=== PATIENT | female | born 1950 | race Caucasian/White ===

== ENCOUNTER → 2018-05-16 01:54 | Outpatient (CLI) | payer MEDICARE, SELFPAY ==
--- NOTE | 2018-05-16 16:14 | DI.REPORT_ITS ---
SYMPTOMS/DIAGNOSIS: SCREENING, Z12.31 MAMMOGRAM: Mammograms were interpreted according to the usual protocol including computer analysis with CAD system, tomosynthesis and C view imaging. The breasts are of moderate density with fairly symmetrical distribution of fibroglandular tissue. No dominant mass or clumped microcalcification is identified in either breast. The current examination is compared with previous examinations including October 2016 and there has been no gross interval change in appearance in comparison with the previous studies. CONCLUSION: No specific evidence of malignancy at this time. Routine screening examinations are suggested at yearly intervals due to the family history of breast carcinoma. Category I. Breast density Category B. MQSA ASSESSMENT OF FINDINGS: Negative. Category 1. Patient will receive a letter notifying them of these results. BI-RADS category B. There are scattered areas of fibroglandular density.
== END ==
PROVIDERS: PCP Nurse Practitioner Family; Visit Provider Nurse Practitioner Family
DX: Z12.31 Encounter for screening mammogram for malignant neoplasm of breast (principal); Z80.3 Family history of malignant neoplasm of breast
CPT/HCPCS: 77063; 77067

== ENCOUNTER 2018-08-22 15:18 | Outpatient (REF) | payer MEDICARE, SELFPAY ==
[2018-08-22 21:19] LABS: ALT 38 U/L (12-78); AST 27 U/L (15-37); Alkaline Phosphatase 77 U/L (46-116); Anion Gap 9.6 mmol/L (3-11); BUN 15 mg/dL (7-18); Bilirubin, Total 0.5 mg/dL (0.2-1.0); CO2 29.4 mmol/L (21.0-32.0); CREATININE 0.77 mg/dL (0.55-1.02); Calcium 9.1 mg/dL (8.5-10.1); Chloride 105 mmol/L (98-107); Glucose 101 mg/dL (70-100); Potassium 3.9 mmol/L (3.5-5.1); Sodium 144 mmol/L (136-145); Total Protein 6.9 g/dL (6.4-8.2)
[2018-08-24 10:05] LABS: Hepatitis C Ab w Rflx HCV PCR Negative (NEGAT)
== END 2018-08-22 15:38 ==
LOC: NCHCN 15:18
PROVIDERS: PCP Nurse Practitioner Family; Visit Provider Nurse Practitioner Family
DX: I25.10 Atherosclerotic heart disease of native coronary artery without angina pectoris (principal); R42 Dizziness and giddiness; F41.8 Other specified anxiety disorders; G43.909 Migraine, unspecified, not intractable, without status migrainosus; Z86.39 Personal history of other endocrine, nutritional and metabolic disease; E66.9 Obesity, unspecified; G47.00 Insomnia, unspecified; G47.62 Sleep related leg cramps
CPT/HCPCS: 80053; 86803

== ENCOUNTER 2019-07-12 11:16 | Outpatient (REF) | payer OTHER, SELFPAY ==
[2019-07-12 22:34] LABS: Abs Immature Grans 0.02 k/cumm (0.0-0.09); Absolute Basophil Count 0.04 k/cumm (0.0-0.2); Absolute Eosinophil Count 0.18 k/cumm (0.0-0.7); Absolute Lymphocyte Count 1.84 k/cumm (1.2-3.4); Absolute Monocyte Count 0.37 k/cumm (0.11-0.7); Absolute Neutrophil Count 2.41 k/cumm (1.2-6.7); Basophils % 0.8; Eosinophils % 3.7; HCT 43.9 % (36.0-46.0); HGB 14.8 g/dL (12.0-15.5); Immature Grans % 0.4; Lymphocytes % 37.9; Mean Corp. HGB Concentration 33.7 g/dL (32.0-36.0); Mean Corpuscular Volume 94.8 fL (80-95); Mean Platelet Volume 10.8 fL (8.0-11.0); Monocytes % 7.6; Neutrophils % 49.6; Platelet Count 232 x1000/uL (130-400); RBC 4.63 m/cumm (4.00-5.20); RBC Distribution Width 12.6 % (11.7-14.6); White Blood Cell Count 4.86 k/cumm (4.4-10.8)
[2019-07-12 23:22] LABS: Anion Gap 11.5 mmol/L (3-11); BUN 15 mg/dL (7-18); CO2 24.5 mmol/L (21.0-32.0); CREATININE 0.76 mg/dL (0.55-1.02); Calcium 8.7 mg/dL (8.5-10.1); Chloride 107 mmol/L (98-107); Glucose 114 mg/dL (70-100); Magnesium 2.2 mg/dL (1.8-2.4); Potassium 4.2 mmol/L (3.5-5.1); Sodium 143 mmol/L (136-145); TSH (W/Ref FT4) 1.83 uIU/mL (0.36-3.74); Vitamin B12 444 pg/mL (193-986)
== END 2019-07-12 11:36 ==
LOC: NCHCN 11:16
PROVIDERS: PCP Nurse Practitioner Family; Visit Provider Nurse Practitioner Family
DX: R00.2 Palpitations (principal); M25.561 Pain in right knee
CPT/HCPCS: 80048; 82607; 83735; 84443; 85025

== ENCOUNTER 2019-09-05 01:12 | Outpatient (CLI) | payer OTHER, SELFPAY ==
--- NOTE | 2019-09-05 12:46 | DI.MAMMO_ITS ---
EXAM: MG MAMMO SCREENING CLINICAL HISTORY: SCREENING, Z12.31 TECHNIQUE: Bilateral full field digital CC and MLO mammographic images were obtained with 3D tomosyn thesis and utilizing computer aided detection (CAD). COMPARISON: Available for comparison. FINDINGS: Masses/Architectural Distortion: None seen. Microcalcifications: No suspicious pleomorphic-type are seen. Skin Thickening/Nipple Retraction: None. IMPRESSION: 1. No significant interval change with no specific features of malignancy noted. 2. Unless there is more urgent need, screening mammography is recommended, as per [employer] guidelines. ACR BI-RAD Category- 1 Negative Breast Density - Category B - Scattered areas of fibroglandular density A negative radiographic report should not delay biopsy if a dominant or clinically suspicious mass is present. Up to ten percent of cancers are not identified on mammography. A negative report may reinforce clinical impression. Adenosis and dense breasts may obscure an underlying neoplasm. False positive reports average 6 to 10%. Patient will receive a letter notifying them of these results.
--- NOTE | 2019-09-05 13:21 | DI.US_ITS ---
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 COMPARISON: No exams were available for comparison FINDINGS: On the right, there is minimal calcific plaque. No hemodynamically significant velocity elevations a re present. The right vertebral artery is antegrade. On the left, there is minimal calcific plaque. No hemodynamically significant velocity elevations ar e present. The left vertebral artery is antegrade. IMPRESSION: No evidence of hemodynamically significant carotid artery stenosis.
== END 2019-09-05 01:32 ==
PROVIDERS: PCP Nurse Practitioner Family; Visit Provider Nurse Practitioner Family
DX: Z12.31 Encounter for screening mammogram for malignant neoplasm of breast (principal); R55 Syncope and collapse; I49.8 Other specified cardiac arrhythmias; R00.2 Palpitations
CPT/HCPCS: 77063; 77067; 93880

== ENCOUNTER 2020-07-16 16:28 | Outpatient (REF) | payer OTHER, SELFPAY ==
[2020-07-16 22:15] LABS: Anion Gap 7.2 mmol/L (3-11); BUN 15 mg/dL (7-18); CO2 26.8 mmol/L (21.0-32.0); Calcium 9.2 mg/dL (8.5-10.1); Chloride 104 mmol/L (98-107); Glucose 94 mg/dL (74-106); Potassium 4.3 mmol/L (3.5-5.1); Sodium 138 mmol/L (136-145)
== END 2020-07-16 16:48 ==
LOC: NCHCN 16:28
PROVIDERS: PCP Nurse Practitioner Family
DX: I25.10 Atherosclerotic heart disease of native coronary artery without angina pectoris (principal); R55 Syncope and collapse; R00.2 Palpitations
CPT/HCPCS: 80048

== ENCOUNTER 2020-08-28 12:01 | Outpatient (REF) | payer OTHER, SELFPAY | END 2020-08-28 12:21 | LOC: NCHCN 12:01 | PROVIDERS: PCP Nurse Practitioner Family; Visit Provider Nurse Practitioner Family | DX: R31.9 Hematuria, unspecified (principal) | CPT/HCPCS: 87086 ==

== ENCOUNTER 2020-10-09 01:11 | Outpatient (CLI) | payer OTHER, SELFPAY ==
--- NOTE | 2020-10-09 | DI.DEXA_ITS ---
EXAM: XR DEXA BONE DENSITY W/WO JULIA CLINICAL HISTORY: OTHER DISORDER OF BONE DENSITY,M85.88 TECHNIQUE: COMPARISON: No exams were available for comparison FINDINGS: DEXA scan was performed according to the usual protocol. Please see the accompanying data sheet. Findings for lumbar spine scanning are T-score -0.5. Prior study of October 2016 showed lumbar T-sc ore -0.4. Findings for left hip scanning are T-score 0.1 with left femoral neck T-score -1.0. Prior examinatio n of 2016 showed left hip T-score -0.3. Findings for left forearm scanning are T-score -2.6. IMPRESSION: Results consistent with osteoporosis according to the WHO criteria. The lateral vertebral scanogram shows no evidence of a vertebral compression fracture. RADIATION DOSE DELIVERED: Total DLP
== END 2020-10-09 01:31 ==
PROVIDERS: PCP Nurse Practitioner Family
DX: M81.0 Age-related osteoporosis without current pathological fracture (principal); M85.88 Other specified disorders of bone density and structure, other site
CPT/HCPCS: 77080

== ENCOUNTER 2021-05-05 16:42 | Outpatient (REF) | payer OTHER, SELFPAY ==
[2021-05-05 20:51] LABS: ALT 26 U/L (14-59); AST 21 U/L (15-37); Alkaline Phosphatase 69 U/L (46-116); BUN 14 mg/dL (7-18); Bilirubin, Total 0.4 mg/dL (0.2-1.0); CREATININE 0.7 mg/dL (0.55-1.02); Chloride 109 mmol/L (98-107); Glucose 111 mg/dL (74-106); PHOSPHORUS 2.7 mg/dL (2.6-4.7); Potassium 3.8 mmol/L (3.5-5.1); Sodium 143 mmol/L (136-145); Total Protein 6.8 g/dL (6.4-8.2)
[2021-05-07 01:24] LABS: Vitamin D 25 Total 84.8 ng/mL (30-100)
== END 2021-05-05 16:43 | disposition home or self-care (01) ==
LOC: NCHCN 16:42
PROVIDERS: PCP Nurse Practitioner Family; Visit Provider Nurse Practitioner Family
DX: I25.10 Atherosclerotic heart disease of native coronary artery without angina pectoris (principal); E78.00 Pure hypercholesterolemia, unspecified; F41.8 Other specified anxiety disorders; E66.9 Obesity, unspecified; M81.0 Age-related osteoporosis without current pathological fracture; G43.909 Migraine, unspecified, not intractable, without status migrainosus
CPT/HCPCS: 80053; 82306; 84100

== ENCOUNTER 2022-07-05 16:51 | Outpatient (REF) | payer MEDICARE, SELFPAY ==
[2022-07-05 15:05] LABS: ALT 30 U/L (14-59); AST 19 U/L (15-37); Alkaline Phosphatase 59 U/L (46-116); Anion Gap 8.6 mmol/L (3-11); BUN 14 mg/dL (7-18); Bilirubin, Total 0.4 mg/dL (0.2-1.0); CO2 27.4 mmol/L (21.0-32.0); CREATININE 0.7 mg/dL (0.55-1.02); Chloride 106 mmol/L (98-107); Glucose 106 mg/dL (74-106); Potassium 4.4 mmol/L (3.5-5.1); Sodium 142 mmol/L (136-145)
[2022-07-05 15:36] LABS: Vitamin D 25 Total 99.6 ng/mL (30-100)
== END 2022-07-05 16:52 | disposition home or self-care (01) ==
LOC: NCHCN 16:51
PROVIDERS: PCP Nurse Practitioner Family; Visit Provider Nurse Practitioner Family
DX: M81.0 Age-related osteoporosis without current pathological fracture (principal); R05.3 Chronic cough; E66.9 Obesity, unspecified; F41.8 Other specified anxiety disorders; I25.10 Atherosclerotic heart disease of native coronary artery without angina pectoris; G47.00 Insomnia, unspecified
CPT/HCPCS: 80053; 82306

== ENCOUNTER 2023-05-31 17:38 | Outpatient (REF) | payer MEDICARE, SELFPAY ==
[2023-05-31 17:52] LABS: Vitamin D 25 Total 57.9 ng/mL (30-100)
[2023-05-31 18:01] LABS: ALT 38 U/L (14-59); AST 30 U/L (15-37); Albumin 4.1 g/dL (3.4-5.0); Alkaline Phosphatase 70 U/L (46-116); Anion Gap 8.5 mmol/L (3-11); BUN 12 mg/dL (7-18); Bilirubin, Total 0.7 mg/dL (0.2-1.0); CO2 26.5 mmol/L (21.0-32.0); CREATININE 0.6 mg/dL (0.55-1.02); Calcium 9.3 mg/dL (8.5-10.1); Calculated LDL 99 mg/dL (<100); Chloride 105 mmol/L (98-107); Cholesterol 199 mg/dL (<200); Estimated GFR 94.13 (mL/min/1.73m2); Glucose 97 mg/dL (74-106); HDL Cholesterol 79 mg/dL (40-60); Magnesium 2.1 mg/dL (1.8-2.4); Sodium 140 mmol/L (136-145); Total Protein 6.8 g/dL (6.4-8.2); Triglyceride 106 mg/dL (<150); Vitamin B12 396 pg/mL (193-986)
== END 2023-05-31 17:39 | disposition home or self-care (01) ==
LOC: NCHCN 17:38
PROVIDERS: PCP Nurse Practitioner Family; Visit Provider Nurse Practitioner Family
DX: R06.83 Snoring (principal); R53.83 Other fatigue; H92.02 Otalgia, left ear; K30 Functional dyspepsia; R05.3 Chronic cough; I25.10 Atherosclerotic heart disease of native coronary artery without angina pectoris; G47.00 Insomnia, unspecified
CPT/HCPCS: 80053; 80061; 82306; 82607; 83735

== ENCOUNTER → 2023-10-28 12:54 | Outpatient (CLI) | payer MEDICARE, SELFPAY ==
--- NOTE | 2023-10-28 | DI.US_ITS ---
Exam(s) US LOWER EXTREMITY VENOUS RT EXAM: US LOWER EXTREMITY VENOUS RT CLINICAL HISTORY: RT LEG PAIN,? DVT,VARICOSE VEINS TECHNIQUE: Right lower extremity venous ultrasound performed using grayscale, color-flow, and spectr al Doppler analysis. COMPARISON: No exams were available for comparison FINDINGS: The right common femoral, femoral and popliteal veins demonstrate normal compressibility, augmentatio n, and color Doppler. The posterior tibial and peroneal veins are patent. There is thrombus seen in the greater saphenous vein measuring 10 cm in length. It is 3 cm from the saphenofemoral junction. There is no evidence of a Tillman cyst. The soft tissues are unremarkable. IMPRESSION: 1. No evidence of a right lower extremity DVT. 2. Greater saphenous thrombophlebitis. The thrombus is 3 cm from the saphenous femoral junction. DATA REPOSITORY:
== END ==
PROVIDERS: PCP Nurse Practitioner Family; Visit Provider Family Medicine
DX: I82.811 Embolism and thrombosis of superficial veins of right lower extremity (principal)
CPT/HCPCS: 93971

== ENCOUNTER 2024-06-25 15:10 | Outpatient (REF) | payer MEDICARE, SELFPAY ==
[2024-06-25 14:52] LABS: Bilirubin Negative (Negative); Blood Negative (Negative); Clarity Clear (Clear); Glucose Negative (Negative); Ketones Trace mg/dL (Negative); Leukocyte Esterase Trace (Negative); Nitrite Negative (Negative); Specific Gravity 1.025 (1.005-1.025); Urobilinogen 0.2 mg/dL (Up to 0.2); pH 5.5 (5-8)
[2024-06-25 14:58] LABS: Bacteria Negative HPF (Negative); C & S Indicated? No; Casts Negative LPF (Negative); Crystals Negative HPF (Negative); Epithelial Cells Few HPF (Negative); Mucus Moderate (Negative); RBC Negative HPF (0-2); WBC 0-2 HPF (0-5)
[2024-06-25 15:29] LABS: COMMENT (LAB VIEW ONLY) 144.22 mg/dL; Microalb ug/mg Crea 23.6 ug/mg Cr
[2024-06-25 15:51] LABS: ALT 25 U/L (14-59); AST 19 U/L (15-37); Albumin 3.9 g/dL (3.4-5.0); Alkaline Phosphatase 79 U/L (46-116); Anion Gap 10.7 mmol/L (3-11); BUN 14 mg/dL (7-18); CO2 25.3 mmol/L (21.0-32.0); CREATININE 0.7 mg/dL (0.55-1.02); Calcium 8.9 mg/dL (8.5-10.1); Chloride 105 mmol/L (98-107); Estimated GFR 89.58 (mL/min/1.73m2); Glucose 102 mg/dL (74-106); Magnesium 2.5 mg/dL (1.8-2.4); Potassium 4.2 mmol/L (3.5-5.1); Sodium 141 mmol/L (136-145); Total Protein 6.9 g/dL (6.4-8.2); Vitamin B12 303 pg/mL (193-986)
[2024-07-03 15:29] LABS: 25-Hydroxy D Total 50 ng/mL; 25-Hydroxy D2 21 ng/mL; 25-Hydroxy D3 29 ng/mL
== END 2024-06-25 15:11 | disposition home or self-care (01) ==
LOC: NCHCN 15:10
PROVIDERS: PCP Nurse Practitioner Family; Visit Provider Nurse Practitioner Family
DX: M81.0 Age-related osteoporosis without current pathological fracture (principal); I25.10 Atherosclerotic heart disease of native coronary artery without angina pectoris; K30 Functional dyspepsia
CPT/HCPCS: 80053; 82306; 81003; 81015; 82043; 82570; 82607; 83735; 84100

== ENCOUNTER 2024-07-31 16:10 | Outpatient (REF) | payer MEDICARE, SELFPAY ==
[2024-07-31 22:29] LABS: ALT 26 U/L (14-59); AST 21 U/L (15-37); Albumin 3.9 g/dL (3.4-5.0); Alkaline Phosphatase 72 U/L (46-116); Anion Gap 9.2 mmol/L (3-11); BUN 15 mg/dL (7-18); Bilirubin, Total 0.48 mg/dL (0.2-1.0); CO2 26.8 mmol/L (21.0-32.0); CREATININE 0.9 mg/dL (0.55-1.02); Calcium 9.2 mg/dL (8.5-10.1); Chloride 109 mmol/L (98-107); Estimated GFR 66.26 (mL/min/1.73m2); Glucose 88 mg/dL (74-106); Potassium 4.3 mmol/L (3.5-5.1); Sodium 145 mmol/L (136-145); Total Protein 6.8 g/dL (6.4-8.2)
== END 2024-07-31 16:11 | disposition home or self-care (01) ==
LOC: NCHCN 16:10
PROVIDERS: PCP Nurse Practitioner Family; Visit Provider Nurse Practitioner Family
DX: I25.10 Atherosclerotic heart disease of native coronary artery without angina pectoris (principal)
CPT/HCPCS: 80053

== ENCOUNTER 2024-12-04 13:08 | Outpatient (REF) | payer MEDICARE, SELFPAY ==
[2024-12-04 21:17] LABS: ESR 1 mm/hr (0-30)
[2024-12-04 21:24] LABS: C-Reactive Protein < 0.50 mg/dL (<or=0.5)
[2024-12-05 20:08] LABS: Rheumatoid Factor <8.6 IU/mL (<12.0)
[2024-12-06 12:18] LABS: Lyme Ab w Rflx to Lyme Confirm Negative (Negative)
[2024-12-08 15:40] LABS: Anaplasma phagocytophilum Negative (Negative); B. miyamotoi PCR Negative (Negative); Babesia divergens/MO-1 Negative (Negative); Babesia duncani Negative (Negative); Babesia microti Negative (Negative); Ehrlichia chaffeensis Negative (Negative); Ehrlichia ewingii/canis Negative (Negative); Ehrlichia muris eauclairensis Negative (Negative)
== END 2024-12-04 13:09 | disposition home or self-care (01) ==
LOC: NCHCN 13:08
PROVIDERS: PCP Nurse Practitioner Family; Visit Provider Family Medicine
DX: M25.59 Pain in other specified joint (principal)
CPT/HCPCS: 85652; 87798; 86140; 86431; 86618

== ENCOUNTER 2024-12-06 18:12 | Outpatient (REF) | payer MEDICARE, SELFPAY ==
[2024-12-06 20:58] LABS: Abs Immature Grans 0.03 10^3/uL (0.0-0.06); Absolute Basophil Count 0.05 10^3/uL (0.0-0.2); Absolute Eosinophil Count 0.11 10^3/uL (0.0-0.7); Absolute Lymphocyte Count 2.56 10^3/uL (1.2-3.4); Absolute Monocyte Count 0.43 10^3/uL (0.1-0.8); Absolute Neutrophil Count 4.08 10^3/uL (1.2-6.7); Basophils % 0.7 %; Eosinophils % 1.5 %; HCT 43.7 % (36.0-46.0); HGB 14.7 g/dL (11.2-15.7); Immature Grans % 0.4 %; Lymphocytes % 35.3 %; MCHC 33.6 % (32.0-36.0); MCV 95 fL (80-95); MPV 10.7 fL (8.0-11.0); Monocytes % 5.9 %; Neutrophils % 56.2 %; Platelet Count 210 10^3/uL (130-400); RBC 4.59 10^6/uL (3.93-5.22); RDW 12.5 % (11.7-14.6); RDW-SD 43.8 fL; WBC 7.26 10^3/uL (4.4-10.8)
[2024-12-06 21:19] LABS: Anion Gap 8.5 mmol/L (3-11); BUN 15 mg/dL (7-18); CO2 28.5 mmol/L (21.0-32.0); CREATININE 0.8 mg/dL (0.55-1.02); Calcium 9.4 mg/dL (8.5-10.1); Chloride 107 mmol/L (98-107); Creatine Kinase 109 U/L (26-192); Estimated GFR 76.31 (mL/min/1.73m2); Glucose 110 mg/dL (74-106); Potassium 4.5 mmol/L (3.5-5.1); Sodium 144 mmol/L (136-145); TSH (W/Ref FT4) 1.51 uIU/mL (0.36-3.74)
== END 2024-12-06 18:13 | disposition home or self-care (01) ==
LOC: NCHCN 18:12
PROVIDERS: PCP Nurse Practitioner Family; Visit Provider Nurse Practitioner Family
DX: R26.2 Difficulty in walking, not elsewhere classified (principal)
CPT/HCPCS: 80048; 82550; 84443; 85025

== ENCOUNTER 2025-06-10 14:43 | Outpatient (REF) | payer MEDICARE, SELFPAY ==
[2025-06-10 15:31] LABS: ALT 25 U/L (14-59); AST 22 U/L (15-37); Albumin 3.9 g/dL (3.4-5.0); Alkaline Phosphatase 66 U/L (46-116); Anion Gap 10.7 mmol/L (3-11); BUN 15 mg/dL (7-18); Bilirubin, Total 0.4 mg/dL (0.2-1.0); CO2 26.3 mmol/L (21.0-32.0); Calcium 9.0 mg/dL (8.5-10.1); Chloride 107 mmol/L (98-107); Estimated GFR 89.02 (mL/min/1.73m2); Glucose 109 mg/dL (74-106); Magnesium 2.4 mg/dL (1.8-2.4); Potassium 4.2 mmol/L (3.5-5.1); Sodium 144 mmol/L (136-145); Total Protein 6.7 g/dL (6.4-8.2); Vitamin D 25 Total 47 ng/mL (30-100)
== END 2025-06-10 14:44 | disposition home or self-care (01) ==
LOC: NCHCN 14:43
PROVIDERS: PCP Nurse Practitioner Family; Visit Provider Nurse Practitioner Family
DX: M81.0 Age-related osteoporosis without current pathological fracture (principal)
CPT/HCPCS: 80053; 82306; 83735